=== PATIENT | female | born 1970 | race Caucasian/White ===

== ENCOUNTER 2018-01-01 18:07 | Emergency (ER) | payer OTHER ==
[~2018-01-01] VITALS: Ht 157.5 cm; Wt 59.0 kg
[2018-01-01 18:13] VITALS: BP 156/93; Ht 157.5 cm; Wt 59.0 kg
== END 2018-01-01 19:11 | disposition home or self-care (01) ==
LOC: ED 18:07
DX: L89.899 Pressure ulcer of other site, unspecified stage (principal); R03.0 Elevated blood-pressure reading, without diagnosis of hypertension; F41.9 Anxiety disorder, unspecified; I25.2 Old myocardial infarction; Z86.73 Personal history of transient ischemic attack (TIA), and cerebral infarction without residual deficits